=== PATIENT | male | born 1970 | race Two or more races ===

== ENCOUNTER 2023-02-14 08:15 | Inpatient (IN) | payer OTHER ==
[2023-02-14] VITALS (16 sets, daily range): BP systolic 109–152; BP diastolic 64–82; PULSE 55–70; RESP 4–15; TEMP 98
[~2023-02-14] VITALS: Ht 185.4 cm; Wt 97.5 kg
[2023-02-14] MEDS ORDERED: LEVETIRACETAM 1000MG PREMIX 100 ML IV ONE (10:45)
[2023-02-14] MEDS ORDERED: DEXAMETHASONE 10 MG/ML VIAL IV ONE (10:45)
[2023-02-14] MEDS ORDERED: MANNITOL 12.5G (25%) VIAL 50ML IV ONE (10:45)
[2023-02-14 10:49] LABS: BASOPHILS % 0.2 % (0.0-2.0); EOSINOPHILS % 1.3 % (0.0-5.0); HEMATOCRIT. 40.7 % (42.0-52.0); HEMOGLOBIN. 13.7 g/dL (14.0-18.0); LYMPHOCYTES % 15.5 % (20.0-50.0); MEAN CORPUSCULAR HEMOGLOBIN 30.8 pg (28.0-32.0); MEAN CORPUSCULAR VOLUME 91.9 fL (80.0-94.0); MEAN PLATELET VOLUME 9.9 fl (7.4-10.4); MONOCYTES % 8.1 % (2.0-8.0); NEUTROPHILS % 74.9 % (40.0-76.0); PLATELET 203 x1000/uL (130-400); RED BLOOD CELL COUNT 4.43 mill/uL (4.7-6.1); RED CELL DISTRIBUTION WIDTH 13.7 % (11.6-14.6)
[2023-02-14 10:59] LABS: CHLORIDE 114 mEq/L (98-107)
[2023-02-14] MEDS ORDERED: MORPHINE SULFATE 4 MG/ML CPJ (NOT FOR IM USE) IV STA (15:35)
[2023-02-14] MEDS ORDERED: ONDANSETRON HCL 4MG/2ML INJ IV STA (15:35)
[2023-02-14] MEDS ORDERED: GADOTERATE MEGLUMINE 5 MMOL/10 ML VIAL IV ONE (19:53)
[2023-02-14] MEDS ORDERED: MAGNESIUM/ALUMINUM HYDROXIDE/SIMETHICONE 30ML UDC PO PRN (20:00)
[2023-02-14] MEDS ORDERED: NICARDIPINE 100 MG in SODIUM CHLORIDE 0.9% 60 ML IV PRN ×2 (20:00→20:45)
[2023-02-14] MEDS ORDERED: ONDANSETRON HCL 4MG/2ML INJ IV PRN (20:00)
[2023-02-14] MEDS: FAMOTIDINE 20MG TABLET PO SCH (21:00)
[2023-02-14] MEDS ORDERED: MANNITOL 20% (20GM/100ML) BAG 500ML PREMIX IV SCH (21:00)
[2023-02-14] MEDS: MORPHINE SULFATE 2 MG/ML CPJ (NOT FOR IM USE) IV PRN (21:04)
[2023-02-14] MEDS: MANNITOL 20% 100 ML IV SCH (21:12)
[2023-02-14] MEDS: DEXT 5%/LACTATED RINGERS 1,000 ML IV SCH (21:13)
[2023-02-14] MEDS: LEVETIRACETAM 500MG PREMIX 100 ML IV SCH (22:05)
[2023-02-15] VITALS (86 sets, daily range): BP systolic 103–145; BP diastolic 46–89; PULSE 55–83; RESP 6–147; TEMP 97.9–99
[2023-02-15] MEDS ORDERED: DEXAMETHASONE 4MG TABLET PO SCH
[2023-02-15] MEDS: DEXAMETHASONE 4MG/ML 1ML VIAL IV SCH ×3 (01:08→12:33)
[2023-02-15] MEDS: MORPHINE SULFATE 2 MG/ML CPJ (NOT FOR IM USE) IV PRN (01:24)
[2023-02-15] MEDS: MANNITOL 20% 100 ML IV SCH ×4 (03:11→20:52)
[2023-02-15 07:49] LABS: HEMATOCRIT. 41.7 % (42.0-52.0); HEMOGLOBIN. 13.7 g/dL (14.0-18.0); MEAN CORPUSCULAR HEMOGLOBIN 30.5 pg (28.0-32.0); MEAN PLATELET VOLUME 10.7 fl (7.4-10.4); PLATELET 197 x1000/uL (130-400); RED BLOOD CELL COUNT 4.48 mill/uL (4.7-6.1); RED CELL DISTRIBUTION WIDTH 13.8 % (11.6-14.6)
[2023-02-15] MEDS ORDERED: LIDOCAINE HCL/EPINEPHRINE 1%-EPI 1:100,000 20 ML VIAL ONE (08:00)
[2023-02-15] MEDS ORDERED: GENTAMICIN SULF 40MG/ML 2ML VIAL ONE (08:01)
[2023-02-15] MEDS ORDERED: THROMBIN (BOVINE) 5000 UNITS/VIAL TOP ONE ×2 (08:01)
[2023-02-15] MEDS ORDERED: ONDANSETRON HCL 4MG/2ML INJ ONE (08:12)
[2023-02-15] MEDS ORDERED: LIDOCAINE HCL 1% 10 MG/ML 10ML VIAL ONE (08:12)
[2023-02-15] MEDS ORDERED: DEXAMETHASONE 4MG/ML 1ML VIAL ONE ×2 (08:12→10:53)
[2023-02-15] MEDS ORDERED: SUCCINYLCHOLINE CHLORIDE 200MG/10ML IV ONE (08:12)
[2023-02-15] MEDS ORDERED: CEFAZOLIN SODIUM 1000MG/VIAL ONE (08:12)
[2023-02-15] MEDS ORDERED: ROCURONIUM BROMIDE 10MG/ML VIAL 5ML IV ONE ×2 (08:13→10:02)
[2023-02-15] MEDS ORDERED: NEOSTIGMINE METHYLSULFATE 1MG/ML 10 ML VIAL ONE (08:13)
[2023-02-15] MEDS ORDERED: PROPOFOL 200MG/20ML VIAL IV ONE ×2 (08:13→10:18)
[2023-02-15] MEDS ORDERED: MIDAZOLAM HCL 2 MG/2 ML VIAL ONE (08:14)
[2023-02-15] MEDS ORDERED: FENTANYL CITRATE/PF 50MCG/ML 2ML VIAL ONE (08:14)
[2023-02-15] MEDS ORDERED: BACITRACIN 15GM TUBE TOP ONE (08:50)
[2023-02-15] MEDS: LEVETIRACETAM 500MG PREMIX 100 ML IV SCH ×2 (09:00→20:51)
[2023-02-15] MEDS ORDERED: HYDROMORPHONE HCL/PF 2MG/ML CPJ ONE (09:12)
[2023-02-15] MEDS ORDERED: FUROSEMIDE 40MG/4ML VIAL ONE (09:17)
[2023-02-15] MEDS ORDERED: PHENYTOIN SODIUM 100MG/2ML VIAL IV ONE (10:25)
[2023-02-15] MEDS ORDERED: PHENYTOIN SODIUM 1000MG in SODIUM CHLORIDE 0.9% 100ML IV SCH (10:30)
[2023-02-15] MEDS ORDERED: HYDRALAZINE 20MG/ML VIAL ONE (10:52)
[2023-02-15] MEDS ORDERED: LABETALOL HCL 5MG/ML VIAL 20ML IV ONE (10:52)
[2023-02-15] MEDS ORDERED: GLYCOPYRROLATE 0.2 MG/ML 2ML VIAL ONE ×2 (11:03)
[2023-02-15] MEDS ORDERED: SODIUM CHLORIDE 0.9% 10ML VIAL ONE (11:03)
[2023-02-15] MEDS ORDERED: NALOXONE HCL 0.4MG/ML VIAL IV PRN ×2 (11:15→11:30)
[2023-02-15] MEDS ORDERED: NICARDIPINE 100 MG in SODIUM CHLORIDE 0.9% 60 ML IV PRN (12:00)
[2023-02-15 12:03] LABS: PLATELET ESTIMATE NORMAL
[2023-02-15] MEDS: CEFAZOLIN 1000MG PREMIX 50 ML IV SCH ×2 (12:33→21:52)
[2023-02-15] MEDS: MORPHINE SULFATE 4 MG/ML CPJ (NOT FOR IM USE) IV PRN ×4 (12:34→20:52)
[2023-02-15 13:54] LABS: BG BASE EXCESS -3.3 mmol/L (-2.0-2.0); BG CARBOXYHEMOGLOBIN 0.6 % (0.5-1.5); BG DEOXYHEMOGLOBIN 0.5 % (0.0-5.0); BG HCO3 ACT 22.4 mmol/L (22.0-26.0); BG METHEMOGLOBIN 0.4 % (0.0-1.5); BG OXYGEN SATURATION 99.5 % (92.0-98.5); BG OXYHEMOGLOBIN 98.5 % (94.0-97.0); BG PCO2 42.3 mmHg (35.0-45.0); BG PH 7.341 (7.350-7.450); BG PO2 290.7 mmHg (75.0-100.0); BG SAMPLE SITE ALINE; BG TOTAL HEMOGLOBIN 13.9 g/dL (12.0-18.0); BG VENT MODE VENT - AC
[2023-02-15] MEDS ORDERED: CEFAZOLIN SODIUM 1000MG/VIAL IV SCH (14:00)
[2023-02-15] MEDS: PHENYTOIN SODIUM 100MG/2ML VIAL IV SCH ×2 (15:34→21:52)
[2023-02-15] MEDS: HYDRALAZINE 20MG/ML VIAL IV PRN (15:36)
[2023-02-15] MEDS: DEXAMETHASONE 10 MG/ML VIAL IV SCH (17:20)
[2023-02-15] MEDS: DEXT 5%/LACTATED RINGERS 1,000 ML IV SCH (17:20)
[2023-02-15 18:04] LABS: INR 1.1; PROTHROMBIN TIME 11.7 sec (9.6-11.0)
[2023-02-15] MEDS: FAMOTIDINE 20MG TABLET PO SCH (21:00)
[2023-02-16] VITALS (89 sets, daily range): BP systolic 49–148; BP diastolic 22–137; PULSE 70–94; RESP 7–82; TEMP 98.1–99.6
[2023-02-16] MEDS: DEXAMETHASONE 10 MG/ML VIAL IV SCH ×5 (00:10→23:09)
[2023-02-16] MEDS: MORPHINE SULFATE 4 MG/ML CPJ (NOT FOR IM USE) IV PRN ×3 (03:00→19:42)
[2023-02-16] MEDS: MANNITOL 20% 100 ML IV SCH ×3 (03:01→14:54)
[2023-02-16 05:11] LABS: HEMATOCRIT. 39.2 % (42.0-52.0); MEAN CORPUSCULAR HEMOGLOBIN 30.9 pg (28.0-32.0); MEAN CORPUSCULAR VOLUME 93.1 fL (80.0-94.0); PLATELET 192 x1000/uL (130-400); RED BLOOD CELL COUNT 4.21 mill/uL (4.7-6.1); RED CELL DISTRIBUTION WIDTH 13.9 % (11.6-14.6)
[2023-02-16 05:17] LABS: CHLORIDE 109 mEq/L (98-107)
[2023-02-16] MEDS: CEFAZOLIN 1000MG PREMIX 50 ML IV SCH ×3 (05:41→21:07)
[2023-02-16] MEDS: PHENYTOIN SODIUM 100MG/2ML VIAL IV SCH ×3 (05:42→21:07)
[2023-02-16] MEDS: LEVETIRACETAM 1,000 MG in SODIUM CHLORIDE 0.9% 100 ML IV SCH ×2 (06:42→17:55)
[2023-02-16] MEDS ORDERED: PHENYTOIN SODIUM 500 MG in SODIUM CHLORIDE 0.9% 50 ML IV NR (07:00)
[2023-02-16] MEDS ORDERED: LEVETIRACETAM 1,000 MG in SODIUM CHLORIDE 0.9% 100 ML IV SCH (09:00)
[2023-02-16] MEDS: DEXT 5%/LACTATED RINGERS 1,000 ML IV SCH (12:44)
[2023-02-16 13:11] LABS: BG BASE EXCESS 1.4 mmol/L (-2.0-2.0); BG CARBOXYHEMOGLOBIN 0.1 % (0.5-1.5); BG DEOXYHEMOGLOBIN 2.1 % (0.0-5.0); BG FRACTION INSPIRED OXYGEN 40; BG HCO3 ACT 26.6 mmol/L (22.0-26.0); BG METHEMOGLOBIN 0.1 % (0.0-1.5); BG OXYGEN SATURATION 97.9 % (92.0-98.5); BG OXYHEMOGLOBIN 97.7 % (94.0-97.0); BG PCO2 44.4 mmHg (35.0-45.0); BG PH 7.396 (7.350-7.450); BG PO2 108.4 mmHg (75.0-100.0); BG SAMPLE SITE RIGHT RADIAL; BG TOTAL HEMOGLOBIN 13.6 g/dL (12.0-18.0); BG VENT MODE VENT - CPAP
[2023-02-16] MEDS: FAMOTIDINE 20MG TABLET PO SCH (20:28)
[2023-02-17] VITALS (66 sets, daily range): BP systolic 38–174; BP diastolic 0–158; PULSE 64–102; RESP 11–110; TEMP 98.1–98.8
[2023-02-17] MEDS: MORPHINE SULFATE 4 MG/ML CPJ (NOT FOR IM USE) IV PRN ×5 (01:44→23:16)
[2023-02-17] MEDS: HYDRALAZINE 20MG/ML VIAL IV PRN ×2 (03:55→22:18)
[2023-02-17 04:29] LABS: PLATELET ESTIMATE NORMAL
[2023-02-17 05:17] LABS: HEMATOCRIT. 39.2 % (42.0-52.0); HEMOGLOBIN. 12.8 g/dL (14.0-18.0); MEAN CORPUSCULAR HEMOGLOBIN 30.5 pg (28.0-32.0); MEAN PLATELET VOLUME 10.6 fl (7.4-10.4); PLATELET 176 x1000/uL (130-400); RED BLOOD CELL COUNT 4.21 mill/uL (4.7-6.1); RED CELL DISTRIBUTION WIDTH 13.8 % (11.6-14.6)
[2023-02-17 05:21] LABS: CHLORIDE 111 mEq/L (98-107)
[2023-02-17] MEDS: DEXAMETHASONE 10 MG/ML VIAL IV SCH ×3 (05:48→17:26)
[2023-02-17] MEDS: CEFAZOLIN 1000MG PREMIX 50 ML IV SCH (05:48)
[2023-02-17] MEDS: PHENYTOIN SODIUM 100MG/2ML VIAL IV SCH ×3 (05:48→21:00)
[2023-02-17] MEDS: LEVETIRACETAM 1,000 MG in SODIUM CHLORIDE 0.9% 100 ML IV SCH ×2 (06:31→18:32)
[2023-02-17] MEDS: DEXT 5%/LACTATED RINGERS 1,000 ML IV SCH (08:31)
[2023-02-17 14:41] LABS: BG CARBOXYHEMOGLOBIN 0.7 % (0.5-1.5); BG DEOXYHEMOGLOBIN 1.6 % (0.0-5.0); BG FRACTION INSPIRED OXYGEN 40; BG HCO3 ACT 29.1 mmol/L (22.0-26.0); BG METHEMOGLOBIN 0.3 % (0.0-1.5); BG OXYGEN SATURATION 98.4 % (92.0-98.5); BG OXYHEMOGLOBIN 97.4 % (94.0-97.0); BG PCO2 45.4 mmHg (35.0-45.0); BG PH 7.425 (7.350-7.450); BG PO2 114.9 mmHg (75.0-100.0); BG SAMPLE SITE RIGHT RADIAL; BG TOTAL HEMOGLOBIN 13.7 g/dL (12.0-18.0); BG TOTAL RESPIRATORY RATE 22 b/min; BG VENT MODE VENT - AC
[2023-02-17 15:14] LABS: PLATELET ESTIMATE NORMAL
[2023-02-17] MEDS ORDERED: PHENYTOIN SODIUM 500 MG in SODIUM CHLORIDE 0.9% 50 ML IV NR (16:00)
[2023-02-17 17:29] LABS: HEMOGLOBIN. 13.9 g/dL (14.0-18.0); MEAN CORPUSCULAR HEMOGLOBIN 30.5 pg (28.0-32.0); MEAN CORPUSCULAR VOLUME 94.2 fL (80.0-94.0); MEAN PLATELET VOLUME 9.9 fl (7.4-10.4); PLATELET 160 x1000/uL (130-400); RED BLOOD CELL COUNT 4.56 mill/uL (4.7-6.1); RED CELL DISTRIBUTION WIDTH 14.2 % (11.6-14.6)
[2023-02-17 17:42] LABS: CHLORIDE 111 mEq/L (98-107)
[2023-02-17 18:00] LABS: PLATELET ESTIMATE NORMAL
[2023-02-17] MEDS: FAMOTIDINE 20MG TABLET PO SCH (21:00)
[2023-02-18] VITALS (46 sets, daily range): BP systolic 97–146; BP diastolic 61–92; PULSE 64–98; RESP 11–31; TEMP 97.8–100.9
[2023-02-18] MEDS: MORPHINE SULFATE 4 MG/ML CPJ (NOT FOR IM USE) IV PRN (03:15)
[2023-02-18] MEDS: DEXT 5%/LACTATED RINGERS 1,000 ML IV SCH (05:02)
[2023-02-18] MEDS: PHENYTOIN SODIUM 100MG/2ML VIAL IV SCH ×3 (05:02→21:48)
[2023-02-18] MEDS: HYDRALAZINE 20MG/ML VIAL IV PRN (05:07)
[2023-02-18] MEDS: LEVETIRACETAM 1,000 MG in SODIUM CHLORIDE 0.9% 100 ML IV SCH ×2 (06:06→20:05)
[2023-02-18 09:14] LABS: BG BASE EXCESS 4.5 mmol/L (-2.0-2.0); BG CARBOXYHEMOGLOBIN 0.9 % (0.5-1.5); BG DEOXYHEMOGLOBIN 1.5 % (0.0-5.0); BG HCO3 ACT 30.8 mmol/L (22.0-26.0); BG METHEMOGLOBIN 0.5 % (0.0-1.5); BG OXYGEN SATURATION 98.5 % (92.0-98.5); BG OXYHEMOGLOBIN 97.1 % (94.0-97.0); BG PCO2 52.6 mmHg (35.0-45.0); BG PH 7.385 (7.350-7.450); BG PO2 131.6 mmHg (75.0-100.0); BG SAMPLE SITE RIGHT RADIAL; BG TOTAL HEMOGLOBIN 14.1 g/dL (12.0-18.0); BG VENT MODE MASK - CPAP
[2023-02-18 11:28] LABS: BG BASE EXCESS 5.4 mmol/L (-2.0-2.0); BG CARBOXYHEMOGLOBIN 0.5 % (0.5-1.5); BG DEOXYHEMOGLOBIN 3.3 % (0.0-5.0); BG FRACTION INSPIRED OXYGEN 35; BG METHEMOGLOBIN 0.2 % (0.0-1.5); BG OXYGEN SATURATION 96.7 % (92.0-98.5); BG PCO2 48.7 mmHg (35.0-45.0); BG PH 7.421 (7.350-7.450); BG PO2 85.3 mmHg (75.0-100.0); BG SAMPLE SITE RIGHT RADIAL; BG VENT MODE COOL AEROSOL
[2023-02-18] MEDS ORDERED: ACETAMINOPHEN 650MG SUPP PR PRN (12:00)
[2023-02-18] MEDS: FAMOTIDINE 20MG TABLET PO SCH (21:48)
[2023-02-19] VITALS (46 sets, daily range): BP systolic 122–147; BP diastolic 72–93; PULSE 62–88; RESP 9–22; TEMP 97.8–98.6
[2023-02-19] MEDS: MORPHINE SULFATE 4 MG/ML CPJ (NOT FOR IM USE) IV PRN ×3 (00:31→22:25)
[2023-02-19] MEDS: PHENYTOIN SODIUM 100MG/2ML VIAL IV SCH (05:33)
[2023-02-19] MEDS: LEVETIRACETAM 1,000 MG in SODIUM CHLORIDE 0.9% 100 ML IV SCH (05:33)
[2023-02-19] MEDS: PHENYTOIN SODIUM EXTENDED 100MG CAPSULE PO SCH ×2 (13:20→21:04)
[2023-02-19] MEDS: MULTIVITAMINS,THER W-MINERALS TABLET PO SCH (16:52)
[2023-02-19] MEDS: FAMOTIDINE 20MG TABLET PO SCH (21:00)
[2023-02-19] MEDS: LEVETIRACETAM 500MG/5ML CUP PO SCH (21:00)
[2023-02-20] VITALS (21 sets, daily range): BP systolic 127–152; BP diastolic 72–99; PULSE 71–89; RESP 11–35; TEMP 98.1–99.9
[2023-02-20] MEDS: PHENYTOIN SODIUM EXTENDED 100MG CAPSULE PO SCH ×3 (06:15→21:22)
[2023-02-20] MEDS: HYDRALAZINE 20MG/ML VIAL IV PRN (06:15)
[2023-02-20] MEDS: ACETAMINOPHEN 325MG TABLET PO PRN ×2 (06:51→11:57)
[2023-02-20] MEDS: LEVETIRACETAM 500MG/5ML CUP PO SCH (08:37)
[2023-02-20] MEDS: MULTIVITAMINS,THER W-MINERALS TABLET PO SCH (08:37)
[2023-02-20] MEDS: HYDROCODONE/ACETAMINOPHEN 5/325MG TABLET PO PRN (09:14)
[2023-02-20] MEDS: BENAZEPRIL 10MG TABLET PO SCH (11:57)
[2023-02-20] MEDS: FAMOTIDINE 20MG TABLET PO SCH (21:22)
[2023-02-20] MEDS: LEVETIRACETAM 500MG TABLET PO SCH (21:23)
[2023-02-20] MEDS ORDERED: ZOLPIDEM TARTRATE 5MG TABLET PO PRN (22:15)
[2023-02-21] MEDS: HYDROCODONE/ACETAMINOPHEN 5/325MG TABLET PO PRN ×2 (00:37→04:40)
[2023-02-21 04:00] VITALS: BP 124/71; PULSE 78; RESP 18; TEMP 98.1
[2023-02-21] MEDS: PHENYTOIN SODIUM EXTENDED 100MG CAPSULE PO SCH ×2 (05:20→15:15)
[2023-02-21 08:00] VITALS: BP 119/72; PULSE 76; RESP 20; TEMP 97.4
[2023-02-21] MEDS: MULTIVITAMINS,THER W-MINERALS TABLET PO SCH (10:39)
[2023-02-21] MEDS: BENAZEPRIL 10MG TABLET PO SCH (10:39)
[2023-02-21] MEDS: LEVETIRACETAM 500MG TABLET PO SCH (10:39)
[2023-02-21 12:00] VITALS: BP 118/73; PULSE 75; RESP 20; TEMP 97.3
[2023-02-21] MEDS ORDERED: KEPP500 MT (12:18)
[2023-02-21] MEDS ORDERED: HYDR-4001 MT (12:18)
[2023-02-21 16:12] VITALS: BP 135/75; PULSE 74; TEMP 98; O2SAT 98
== END 2023-02-21 17:50 | disposition home health service (06) | DRG 21 ==
LOC: ER 08:15 → MICUSO 18:22 → 8WST 02-20 11:52
PROVIDERS: ADMIT Internal Medicine Pulmonary Disease; ATTEND Internal Medicine Pulmonary Disease
PROC: 5A1945Z Respiratory Ventilation, 24-96 Consecutive Hours (ICD-10-PCS; principal; 2023-02-15)
PROC: 00B70ZZ Excision of Cerebral Hemisphere, Open Approach (ICD-10-PCS; 2023-02-15)
PROC: 4A00X4Z Measurement of Central Nervous Electrical Activity, External Approach (ICD-10-PCS; 2023-02-15)
PROC: 4A103BD Monitoring of Intracranial Pressure, Percutaneous Approach (ICD-10-PCS; 2023-02-15)
PROC: 00H032Z Insertion of Monitoring Device into Brain, Percutaneous Approach (ICD-10-PCS; 2023-02-15)
PROC: 0NU00JZ Supplement Skull with Synthetic Substitute, Open Approach (ICD-10-PCS; 2023-02-15)
DX: C71.9 Malignant neoplasm of brain, unspecified (principal); J96.00 Acute respiratory failure, unspecified whether with hypoxia or hypercapnia; R40.20 Unspecified coma; G93.6 Cerebral edema; G93.40 Encephalopathy, unspecified; E44.1 Mild protein-calorie malnutrition; G93.9 Disorder of brain, unspecified; W19.XXXA Unspecified fall, initial encounter; I10 Essential (primary) hypertension; Z68.28 Body mass index [BMI] 28.0-28.9, adult
CPT/HCPCS: 36415; 36600; 70553; 71045; 80048; 80053; 80185; 82375; 82805; 83880; 84484; 85025; 86850; 86900; 86920; 88307; 88331; 93005; 94002; 94003; 95816; 97116; 97163; 97167; 97530; 99285; A9577; J0330; J0360; J0690; J1100; J1165; J1170; J1580; J1940; J1953; J2150; J2250; J2270; J2405; J2704; J2710; J3010; J3490; J7050; J7120; J7121; C1713